=== PATIENT | female | born 1955 | race Caucasian/White ===

== ENCOUNTER 2018-01-04 11:26 | Emergency (ER) | payer MEDICARE, SELFPAY ==
[~2018-01-04] VITALS: Ht 160 cm; Wt 79.4 kg
[~2018-01-04 11:26] MED LIST: ASPI81CH PO; Amoxicillin500 MG PO; Augmentin 875-1 EACH PO; CEFD300; ERGO400 PO; LISI5 PO; Nasonex17 GM; OMEP10ER PO; PROP10 PO; PSEU120ER PO; Pseudoephedrine30 MG PO
[2018-01-04] MEDS ORDERED: Prinivil10 MG PO (12:07)
[2018-01-04] MEDS ORDERED: Pulmicort Flex90 MCG IH (12:07)
[2018-01-04] MEDS ORDERED: HYDCHL12.5 PO (12:07)
[2018-01-04] MEDS ORDERED: Omeprazole20 M1 (12:08)
[2018-01-04] MEDS ORDERED: ALBU90OI61 INH (12:08)
[2018-01-04] MEDS ORDERED: Flonase 0.05% N16 GM (13:23)
[2018-01-04] MEDS ORDERED: Sudogest60 MG PO (13:23)
[2018-04-03] MEDS ORDERED: Pyridium200 MG PO (13:22)
[2018-04-03] MEDS ORDERED: Keflex500 MG PO (13:22)
[2018-09-08] MEDS ORDERED: METF500C PO (14:46)
[2018-09-08] MEDS ORDERED: CYCL10 PO (14:47)
[2018-09-08] MEDS ORDERED: DILT120ERA PO (15:48)
[2018-09-08] MEDS ORDERED: CYAN500 PO (15:49)
[2018-09-08] MEDS ORDERED: CENTRUM ADULTS1 EACH PO (15:49)
[2018-09-09] MEDS ORDERED: METO25ER PO (10:50)
== END 2018-01-04 13:33 | disposition home or self-care (01) ==
LOC: ER 11:26
DX: J06.9 Acute upper respiratory infection, unspecified (principal); Z88.8 Allergy status to other drugs, medicaments and biological substances; Z88.2 Allergy status to sulfonamides; Z79.899 Other long term (current) drug therapy; Z85.3 Personal history of malignant neoplasm of breast
CPT/HCPCS: 71046; 87081; 87430; 99283

== ENCOUNTER → 2018-01-26 | Outpatient (CLI) | payer MEDICARE, SELFPAY ==
[~2018-01-26] MED LIST changes: +ALBU90OI61 INH; +ALPR.5 PO; +Flonase 0.05% N16 GM; +HYDCHL12.5 PO; +METO50 PO; +Omeprazole20 M1; +POTCHL10ER PO; +Prinivil10 MG PO; +Pulmicort Flex90 MCG IH; +Sudogest60 MG PO; +XARELTO20 MG PO
[2018-01-28 12:36] LABS: HPV Genotype 16 Not Detected (NOTDET); HPV Genotype 18 Not Detected (NOTDET)
[2018-02-15 11:49] LABS: HPV High Risk Other Not Detected (NOTDET)
== END | disposition home or self-care (01) ==
LOC: OLS 15:16 → LAB SHORT 15:16
PROVIDERS: Nurse Practitioner Women's Health
DX: Z12.72 Encounter for screening for malignant neoplasm of vagina (principal)
CPT/HCPCS: 87624; G0123

== ENCOUNTER 2018-02-05 11:53 | Inpatient (IN) | payer MEDICARE, SELFPAY ==
[~2018-02-05] VITALS: Ht 160 cm; Wt 76.7 kg
[~2018-02-05 11:53] MED LIST changes: -ALPR.5 PO; -METO50 PO; -POTCHL10ER PO; -XARELTO20 MG PO
[2018-02-05 12:29] LABS: BASOPHILS ABSOLUTE AUTO 0.03 K/mm3 (0.00-0.23); BASOPHILS PERCENT AUTO 1 % (0-2); EOSINOPHILS ABSOLUTE AUTO 0.05 K/mm3 (0.00-0.68); EOSINOPHILS PERCENT AUTO 1 % (0-6); Hematocrit 44.7 % (33.0-51.0); IMMATURE GRAN ABSOLUTE AUTO 0.01 K/mm3 (0.00-0.10); IMMATURE GRAN PERCENT AUTO 0 % (0-1); LYMPHOCYTES ABSOLUTE AUTO 3.07 K/mm3 (0.84-5.20); LYMPHOCYTES PERCENT AUTO 47 % (21-46); MONOCYTES ABSOLUTE AUTO 0.46 K/mm3 (0.16-1.47); MONOCYTES PERCENT AUTO 7 % (4-13); Mean Corpuscular HGB 29.2 pg (26.0-34.0); Mean Corpuscular HGB Conc 33.6 g/dL (31.5-36.5); Mean Corpuscular Volume 87 fL (80-100); NEUTROPHILS ABSOLUTE AUTO 2.98 K/mm3 (1.96-9.15); NEUTROPHILS PERCENT AUTO 45 % (41-73); RDW Coefficient Variation 13.3 % (11.7-14.2); Red Blood Cell Count 5.13 M/mm3 (3.80-5.20)
[2018-02-05 12:32] LABS: Mean Platelet Volume 13.9 fL (9.1-12.4)
[2018-02-05 12:44] LABS: Alanine Aminotransfer (ALT/SGP 40 U/L (12-78); Albumin, Blood 3.9 g/dL (3.4-5.0); Alk Phos 105 U/L (50-136); Anion Gap 12 mmol/L (6-16); Aspartate Aminotrans (AST/SGOT 41 U/L (12-37); Bilirubin, Total 0.7 mg/dL (0.1-1.0); Blood Urea Nitrogen 16 mg/dL (8-24); Bun/Creatinine Ratio 24.7 (12.0-20.0); CO2, Blood 22 mmol/L (21-32); Calcium, Blood 9.7 mg/dL (8.5-10.1); Chloride, Blood 103 mmol/L (98-108); Creatinine, Blood 0.65 mg/dL (0.40-1.00); Globulin, Blood 3.9 g/dL (2.2-4.0); Glomerular Filtration Rate >60 (60-); Glucose, Blood 198 mg/dL (70-99); Sodium, Blood 137 mmol/L (136-145); Total Protein, Blood 7.8 g/dL (6.4-8.2); Troponin I <0.015 ng/mL (0.000-0.040)
[2018-02-05 12:59] LABS: Platelet Count 224 K/mm3 (150-400)
[2018-02-05 14:10] LABS: Source, Urine Clean Catch
[2018-02-05 14:18] LABS: Bilirubin, Urine Neg (Neg); Blood, Urine Neg (Neg); Glucose Qualitative, Urine Neg (Neg); Ketones, Urine Neg (Neg); Leukocyte Esterase, Urine Neg (Neg); Nitrite, Urine Neg (Neg); Protein, Urine Neg (Neg); Specific Gravity, Urine 1.015 (1.003-1.022); Urobilinogen, Urine NORM (Normal)
[2018-02-05 14:42] LABS: Appearance, Urine Clear (Clear); Color, Urine Yellow (P-Yellow)
[2018-02-06 06:37] LABS: Anion Gap 9 mmol/L (6-16); Blood Urea Nitrogen 18 mg/dL (8-24); Bun/Creatinine Ratio 26.4 (12.0-20.0); CO2, Blood 24 mmol/L (21-32); Calcium, Blood 8.8 mg/dL (8.5-10.1); Chloride, Blood 110 mmol/L (98-108); Creatinine, Blood 0.68 mg/dL (0.40-1.00); Glomerular Filtration Rate >60 (60-); Glucose, Blood 138 mg/dL (70-99); Magnesium, Blood 2.3 mg/dL (1.6-2.4); Potassium, Blood 3.9 mmol/L (3.5-5.5); Sodium, Blood 143 mmol/L (136-145)
[2018-02-07] MEDS ORDERED: ALPR.5 PO (17:12)
[2018-02-07] MEDS ORDERED: METO50 PO (17:13)
[2018-02-07] MEDS ORDERED: XARELTO20 MG PO (17:14)
[2018-02-07] MEDS ORDERED: POTCHL10ER PO (18:00)
== END 2018-02-07 18:00 | disposition home or self-care (01) | DRG 282 ==
LOC: ER 11:53 → PCU 16:05
PROVIDERS: Emergency Medicine; Internal Medicine
DX: I21.A1 Myocardial infarction type 2 (principal); I48.91 Unspecified atrial fibrillation; I10 Essential (primary) hypertension; F41.9 Anxiety disorder, unspecified; E11.9 Type 2 diabetes mellitus without complications; K76.0 Fatty (change of) liver, not elsewhere classified; E78.5 Hyperlipidemia, unspecified
CPT/HCPCS: 36415; 71046; 76705; 78452; 80048; 80053; 81003; 82947; 83735; 84443; 84484; 85025; 93005; 93010; 93017; 93306; 94760; 96365; 96366; 96376; 99285; A9500; J7030

== ENCOUNTER 2018-04-03 | Emergency (ER) | END 2018-04-03 13:29 | disposition home or self-care (01) ==

== ENCOUNTER 2018-05-17 12:04 | Day surgery (SDC) | payer MEDICARE, SELFPAY ==
[~2018-05-17] VITALS: Ht 160 cm; Wt 69.6 kg
[~2018-05-17 12:04] MED LIST changes: +ALPR.5 PO; +Keflex500 MG PO; +METO50 PO; +POTCHL10ER PO; +Pyridium200 MG PO; +XARELTO20 MG PO
== END 2018-05-17 14:08 | disposition home or self-care (01) ==
LOC: ORSCSDS 12:04
PROVIDERS: Internal Medicine Gastroenterology
PROC: 0DB98ZX Excision of Duodenum, Via Natural or Artificial Opening Endoscopic, Diagnostic (ICD-10-PCS; principal; 2018-05-17 13:30)
PROC: 0DJD8ZZ Inspection of Lower Intestinal Tract, Via Natural or Artificial Opening Endoscopic (ICD-10-PCS; principal; 2018-05-17 13:30)
DX: K21.0 Gastro-esophageal reflux disease with esophagitis (principal); Z12.11 Encounter for screening for malignant neoplasm of colon; D17.9 Benign lipomatous neoplasm, unspecified; K57.30 Diverticulosis of large intestine without perforation or abscess without bleeding; K64.8 Other hemorrhoids; K44.9 Diaphragmatic hernia without obstruction or gangrene; J45.909 Unspecified asthma, uncomplicated; I10 Essential (primary) hypertension; F41.8 Other specified anxiety disorders; E78.2 Mixed hyperlipidemia; Z79.899 Other long term (current) drug therapy; I48.0 Paroxysmal atrial fibrillation; R73.09 Other abnormal glucose; Z79.01 Long term (current) use of anticoagulants; Z79.84 Long term (current) use of oral hypoglycemic drugs
CPT/HCPCS: 43239; G0121; 82947; 88305

== ENCOUNTER → 2018-05-19 | Outpatient (CLI) | payer MEDICARE, SELFPAY | LOC: LAB EV 12:00 → LAB SHORT 12:00 | DX: N39.0 Urinary tract infection, site not specified (principal) | CPT/HCPCS: 87077; 87086; 87186 ==

== ENCOUNTER → 2019-04-30 | Outpatient (CLI) | payer MEDICARE, SELFPAY ==
[~2019-04-30] MED LIST changes: +CENTRUM ADULTS1 EACH PO; +CYAN500 PO; +CYCL10 PO; +DILT120ERA PO; +METF500C PO; +METO25ER PO
== END | disposition home or self-care (01) ==
LOC: LAB EV 14:15 → LAB SHORT 14:15
DX: R30.0 Dysuria (principal)
CPT/HCPCS: 87086

== ENCOUNTER 2019-09-05 08:35 | Day surgery (SDC) | payer MEDICARE, SELFPAY ==
[~2019-09-05] VITALS: Wt 73.4 kg
--- NOTE | 2019-09-05 09:56 | NUR ---
Ambulatory in Day SurgeryLungs clear T/O to Auscultation. Patient confirms NPO status and agrees with scheduled surgery. Discharge instructions reviewed with patient. Patient verbalizes understanding. Copy given to patient to take home. Patient up to Ambulate independently. Gait steady. Patient States Post-Procedure ride home has been arranged. PATIENT INTRA-OP VITALS, SEE RADIOLOGY CHARTING.
== END 2019-09-05 10:03 | disposition home or self-care (01) ==
LOC: CT 08:35 → ORD 08:35 → CT 09:00 → ORD 10:03
DX: I48.0 Paroxysmal atrial fibrillation (principal); I10 Essential (primary) hypertension; I25.10 Atherosclerotic heart disease of native coronary artery without angina pectoris; F41.9 Anxiety disorder, unspecified; F32.9 Major depressive disorder, single episode, unspecified; G47.30 Sleep apnea, unspecified; Z88.2 Allergy status to sulfonamides; Z88.8 Allergy status to other drugs, medicaments and biological substances; Z79.899 Other long term (current) drug therapy; Z79.01 Long term (current) use of anticoagulants; Z79.84 Long term (current) use of oral hypoglycemic drugs
CPT/HCPCS: 75574; 82947; Q9967

== ENCOUNTER 2020-01-02 16:59 | Emergency (ER) | payer MEDICARE ==
[~2020-01-02] VITALS: Ht 160 cm; Wt 74.8 kg
[2020-01-02 18:05] LABS: BASOPHILS ABSOLUTE AUTO 0.04 K/mm3 (0.00-0.23); BASOPHILS PERCENT AUTO 1 % (0-2); EOSINOPHILS ABSOLUTE AUTO 0.06 K/mm3 (0.00-0.68); EOSINOPHILS PERCENT AUTO 1 % (0-6); Hematocrit 44.4 % (33.0-51.0); Hemoglobin 14.7 g/dL (11.5-16.0); IMMATURE GRAN ABSOLUTE AUTO 0.01 K/mm3 (0.00-0.10); IMMATURE GRAN PERCENT AUTO 0 % (0-1); LYMPHOCYTES ABSOLUTE AUTO 2.56 K/mm3 (0.84-5.20); LYMPHOCYTES PERCENT AUTO 38 % (21-46); MONOCYTES ABSOLUTE AUTO 0.46 K/mm3 (0.16-1.47); MONOCYTES PERCENT AUTO 7 % (4-13); Mean Corpuscular HGB 31.1 pg (26.0-34.0); Mean Corpuscular HGB Conc 33.1 g/dL (31.5-36.5); Mean Corpuscular Volume 94 fL (80-100); Mean Platelet Volume 12.1 fL (9.1-12.4); NEUTROPHILS ABSOLUTE AUTO 3.61 K/mm3 (1.96-9.15); NEUTROPHILS PERCENT AUTO 54 % (41-73); Platelet Count 188 K/mm3 (150-400); RDW Coefficient Variation 13.1 % (11.7-14.2); Red Blood Cell Count 4.73 M/mm3 (3.80-5.20); White Blood Cell Count 6.74 K/mm3 (4.00-11.30)
[2020-01-02 18:31] LABS: Alanine Aminotransfer (ALT/SGP 30 U/L (12-78); Albumin, Blood 3.8 g/dL (3.4-5.0); Albumin/Globulin Ratio 1.2 (0.8-1.8); Alk Phos 77 U/L (50-136); Anion Gap 7 mmol/L (6-16); Aspartate Aminotrans (AST/SGOT 24 U/L (12-37); Bilirubin, Total 0.4 mg/dL (0.1-1.0); Blood Urea Nitrogen 19 mg/dL (8-24); CO2, Blood 25 mmol/L (21-32); Calcium, Blood 9.8 mg/dL (8.5-10.1); Chloride, Blood 107 mmol/L (98-108); Globulin, Blood 3.1 g/dL (2.2-4.0); Glucose, Blood 144 mg/dL (70-99); Potassium, Blood 3.2 mmol/L (3.5-5.5); Sodium, Blood 139 mmol/L (136-145); Total Protein, Blood 6.9 g/dL (6.4-8.2); Troponin I <0.015 ng/mL (0.000-0.040)
[2020-01-02 18:41] LABS: Bun/Creatinine Ratio 22.8 (12.0-20.0); Creatinine, Blood 0.83 mg/dL (0.40-1.00); Glomerular Filtration Rate >60 (60-)
[2020-01-02] MEDS ORDERED: Hydrochloroth12.5 MG PO (18:59)
== END 2020-01-02 19:08 | disposition home or self-care (01) ==
LOC: ER 16:59
PROVIDERS: Physician Assistant
DX: I48.0 Paroxysmal atrial fibrillation (principal); F41.9 Anxiety disorder, unspecified; I10 Essential (primary) hypertension; E11.9 Type 2 diabetes mellitus without complications; K21.9 Gastro-esophageal reflux disease without esophagitis; J45.909 Unspecified asthma, uncomplicated; Z88.2 Allergy status to sulfonamides; Z88.8 Allergy status to other drugs, medicaments and biological substances; Z79.899 Other long term (current) drug therapy
CPT/HCPCS: 36415; 71046; 80053; 84484; 85025; 93005; 93010; 96360; 99285-25; J7030